=== PATIENT | male | born 1945 | race Caucasian/White ===

== ENCOUNTER → 2016-08-23 | Outpatient (CLI) | payer MEDICARE, BC | LOC: LAB 13:34 | DX: I10 Essential (primary) hypertension (principal); R73.02 Impaired glucose tolerance (oral) ==

== ENCOUNTER → 2016-09-09 | Outpatient (CLI) | payer MEDICARE, BC | LOC: LAB 13:00 | DX: I10 Essential (primary) hypertension (principal) ==

== ENCOUNTER → 2019-07-24 | Outpatient (CLI) | payer MEDICARE, BC | LOC: RAD 08:41 | DX: M48.061 Spinal stenosis, lumbar region without neurogenic claudication (principal); M47.816 Spondylosis without myelopathy or radiculopathy, lumbar region; M43.16 Spondylolisthesis, lumbar region; M99.53 Intervertebral disc stenosis of neural canal of lumbar region ==

== ENCOUNTER → 2020-05-06 | Outpatient (CLI) | payer MEDICARE, BC ==
[2020-05-06 09:54] LABS: HEMATOCRIT 42.1 % (42.0-52.0); HEMOGLOBIN 13.9 g/dL (13.5-18.0); MEAN CELL VOLUME 95 fl (78-100); MEAN CORPUSCULAR HEMOGLOBIN 31 pg (27-31); MEAN CORPUSCULAR HGB CONC 33 g/dL (33-37); MEAN PLATELET VOLUME 8.2 fl (7.4-10.4); PLATELET COUNT 210 K/mm3 (130-400); RED BLOOD COUNT 4.43 M/mm3 (4.20-5.60); RED CELL DISTRIBUTION WIDTH 13.4 % (11.5-14.5)
[2020-05-06 10:09] LABS: LYMPHOCYTE 78 % (20-51); MONOCYTE 4 % (3-10); NEUTROPHILS 18 % (42-75)
== END ==
LOC: LAB 09:42
PROVIDERS: Family Medicine
DX: C91.10 Chronic lymphocytic leukemia of B-cell type not having achieved remission (principal); L30.9 Dermatitis, unspecified

== ENCOUNTER → 2020-07-08 | Outpatient (CLI) | payer MEDICARE, BC ==
[2020-07-08 15:04] LABS: HEMOGLOBIN 13.6 g/dL (13.5-18.0); MEAN CELL VOLUME 96 fl (78-100); MEAN CORPUSCULAR HEMOGLOBIN 31 pg (27-31); MEAN CORPUSCULAR HGB CONC 32 g/dL (33-37); MEAN PLATELET VOLUME 8.3 fl (7.4-10.4); PLATELET COUNT 234 K/mm3 (130-400); RED BLOOD COUNT 4.36 M/mm3 (4.20-5.60); RED CELL DISTRIBUTION WIDTH 13.8 % (11.5-14.5)
[2020-07-08 15:07] LABS: WHITE BLOOD COUNT 21.3 K/mm3 (4.8-10.8)
[2020-07-08 15:18] LABS: LYMPHOCYTE 63 % (20-51); NEUTROPHILS 27 % (42-75)
[2020-07-08 15:19] LABS: MONOCYTE 5 % (3-10)
[2020-07-10 06:38] LABS: ASPERGILLUS FUMIGATUS AL COUNT <0.10 kU/L (()); BERMUDA GRASS ALLERGEN COUNT <0.10 kU/L (()); BOX ELDER-MAPLE ALLERGEN COUNT <0.10 kU/L (()); CAT DANDER ALLERGEN COUNT <0.10 kU/L (()); CLADOSPORIUM ALLERGEN COUNT <0.10 kU/L (()); COCKROACH ALLERGEN COUNT <0.10 kU/L (()); COTTONWOOD TREE ALLERGEN COUNT <0.10 kU/L (()); DUST MITES (D.F.) ALLERG COUNT <0.10 kU/L (()); DUST MITES (D.P.) ALLERG COUNT <0.10 kU/L (()); EGG WHITE ALLERGEN COUNT <0.10 kU/L (()); ELM TREE ALLERGEN COUNT <0.10 kU/L (()); FIREBUSH ALLERGEN COUNT <0.10 kU/L (()); MILK ALLERGEN COUNT <0.10 kU/L (()); OAT ALLERGEN COUNT <0.10 kU/L (()); ROUGH MARSH ELDER ALLERG COUNT <0.10 kU/L (()); RUSSIAN THISTLE ALLERGEN COUNT <0.10 kU/L (()); SHORT RAGWEED ALLERGEN COUNT <0.10 kU/L (()); SOYBEAN ALLERGEN COUNT <0.10 kU/L (()); WHEAT ALLERGEN COUNT <0.10 kU/L (())
[2020-07-10 06:40] LABS: ALTERNARIA TENUIS CNT <0.10 kU/L (()); DOG DANDER ALLERGEN COUNT <0.10 kU/L (()); OAK ALLERGEN COUNT <0.10 kU/L (())
== END ==
LOC: LAB 14:50
PROVIDERS: Family Medicine
DX: C91.90 Lymphoid leukemia, unspecified not having achieved remission (principal); L30.0 Nummular dermatitis

== ENCOUNTER → 2020-11-20 | Outpatient (CLI) | payer MEDICARE, BC ==
[2020-11-20 08:08] LABS: HEMATOCRIT 45.6 % (42.0-52.0); HEMOGLOBIN 14.6 g/dL (13.5-18.0); MEAN CELL VOLUME 95 fl (78-100); MEAN CORPUSCULAR HEMOGLOBIN 31 pg (27-31); MEAN CORPUSCULAR HGB CONC 32 g/dL (33-37); MEAN PLATELET VOLUME 8.2 fl (7.4-10.4); PLATELET COUNT 236 K/mm3 (130-400); RED BLOOD COUNT 4.79 M/mm3 (4.20-5.60); RED CELL DISTRIBUTION WIDTH 15.5 % (11.5-14.5); WHITE BLOOD COUNT 17.2 K/mm3 (4.8-10.8)
[2020-11-20 08:09] LABS: POTASSIUM 3.9 mmol/L (3.5-5.1)
[2020-11-20 08:12] LABS: TOTAL PROTEIN 6.7 g/dL (6.2-8.1)
[2020-11-20 08:13] LABS: TOTAL BILIRUBIN 0.9 mg/dL (0.2-1.2)
[2020-11-20 08:17] LABS: DIRECT BILIRUBIN 0.3 mg/dL (0.0-0.5)
[2020-11-20 08:24] LABS: LYMPHOCYTE 55 % (20-51); MONOCYTE 3 % (3-10); NEUTROPHILS 41 % (42-75)
== END ==
LOC: LAB 11-19 07:04
DX: L40.9 Psoriasis, unspecified (principal); L53.9 Erythematous condition, unspecified; Z51.81 Encounter for therapeutic drug level monitoring

== ENCOUNTER → 2020-12-24 | Outpatient (CLI) | payer MEDICARE, BC ==
[2020-12-24 07:55] LABS: ALBUMIN 3.7 g/dL (3.4-4.8)
[2020-12-24 07:58] LABS: TOTAL PROTEIN 6.2 g/dL (6.2-8.1)
[2020-12-24 07:59] LABS: TOTAL BILIRUBIN 0.8 mg/dL (0.2-1.2)
[2020-12-24 08:03] LABS: DIRECT BILIRUBIN 0.3 mg/dL (0.0-0.5)
== END ==
LOC: LAB 07:27
DX: L40.9 Psoriasis, unspecified (principal); L53.9 Erythematous condition, unspecified; Z51.81 Encounter for therapeutic drug level monitoring

== ENCOUNTER → 2021-01-06 | Outpatient (CLI) | payer MEDICARE, BC ==
[2021-01-06 07:41] LABS: ALBUMIN 3.9 g/dL (3.4-4.8)
[2021-01-06 07:44] LABS: TOTAL PROTEIN 6.8 g/dL (6.2-8.1)
[2021-01-06 07:49] LABS: DIRECT BILIRUBIN 0.3 mg/dL (0.0-0.5)
== END ==
LOC: LAB 07:07
DX: L53.9 Erythematous condition, unspecified (principal); L40.9 Psoriasis, unspecified

== ENCOUNTER → 2021-02-03 | Outpatient (CLI) | payer MEDICARE, BC ==
[2021-02-03 07:26] LABS: HEMATOCRIT 43.9 % (42.0-52.0); HEMOGLOBIN 14.3 g/dL (13.5-18.0); MEAN CELL VOLUME 97 fl (78-100); MEAN CORPUSCULAR HEMOGLOBIN 32 pg (27-31); MEAN CORPUSCULAR HGB CONC 33 g/dL (33-37); MEAN PLATELET VOLUME 8.3 fl (7.4-10.4); PLATELET COUNT 208 K/mm3 (130-400); RED BLOOD COUNT 4.54 M/mm3 (4.20-5.60); RED CELL DISTRIBUTION WIDTH 14.5 % (11.5-14.5); WHITE BLOOD COUNT 15.3 K/mm3 (4.8-10.8)
[2021-02-03 07:59] LABS: ALBUMIN 4.1 g/dL (3.4-4.8); POTASSIUM 4.7 mmol/L (3.5-5.1)
[2021-02-03 08:00] LABS: CALCIUM 9.7 mg/dL (8.3-10.5)
[2021-02-03 08:02] LABS: TOTAL PROTEIN 7.2 g/dL (6.2-8.1)
[2021-02-03 08:03] LABS: TOTAL BILIRUBIN 0.9 mg/dL (0.2-1.2)
[2021-02-03 08:07] LABS: DIRECT BILIRUBIN 0.3 mg/dL (0.0-0.5)
[2021-02-03 09:26] LABS: LYMPHOCYTE 46 % (20-51); MONOCYTE 3 % (3-10); NEUTROPHILS 50 % (42-75)
== END ==
LOC: LAB 07:06
DX: Z51.81 Encounter for therapeutic drug level monitoring (principal); L53.9 Erythematous condition, unspecified

== ENCOUNTER → 2021-04-27 | Outpatient (CLI) | payer MEDICARE, BC ==
[2021-04-27 07:42] LABS: BASO # 0.03 K/mm3 (0.02-0.10); EOS % 0.7 % (0.0-4.0); HEMATOCRIT 48.9 % (42.0-52.0); HEMOGLOBIN 15.9 g/dL (13.5-18.0); LYMPH# 5.92 K/mm3 (1.50-4.00); MEAN CELL VOLUME 96 fl (78-100); MEAN CORPUSCULAR HEMOGLOBIN 31 pg (27-31); MEAN CORPUSCULAR HGB CONC 33 g/dL (33-37); MEAN PLATELET VOLUME 8.1 fl (7.4-10.4); MONO # 0.93 K/mm3 (0.20-0.80); NEU # 7.52 K/mm3 (1.40-6.50); PLATELET COUNT 230 K/mm3 (130-400); RED BLOOD COUNT 5.12 M/mm3 (4.20-5.60); WHITE BLOOD COUNT 14.5 K/mm3 (4.8-10.8)
[2021-04-27 07:53] LABS: ALBUMIN 4.3 g/dL (3.4-4.8)
[2021-04-27 07:54] LABS: POTASSIUM 5.4 mmol/L (3.5-5.1)
[2021-04-27 07:55] LABS: CALCIUM 10.3 mg/dL (8.3-10.5)
[2021-04-27 07:56] LABS: TOTAL PROTEIN 7.6 g/dL (6.2-8.1)
[2021-04-27 08:01] LABS: DIRECT BILIRUBIN 0.3 mg/dL (0.0-0.5)
== END ==
LOC: LAB 07:20
PROVIDERS: Dermatology Procedural Dermatology
DX: Z51.81 Encounter for therapeutic drug level monitoring (principal); L53.9 Erythematous condition, unspecified

== ENCOUNTER 2021-12-03 09:09 | Emergency (ER) | payer MEDICARE, BC ==
[~2021-12-03] VITALS: Ht 167.6 cm; Wt 70.5 kg
[2021-12-03] MEDS ORDERED: ACITRETIN25 MG PO (09:27)
[2021-12-03] MEDS ORDERED: HYDROXYZINE HCL25 M1 PO (09:31)
[2021-12-03] MEDS ORDERED: CLOBETASOL OINT TOP (09:31)
[2021-12-03] MEDS ORDERED: HCTZ 25MG25 MG PO (09:31)
[2021-12-03] MEDS ORDERED: FLOMAX0.4 MG PO (09:32)
[2021-12-03] MEDS ORDERED: TALTZ AUTO80 MG/1 ML SQ (09:34)
[2021-12-03] MEDS ORDERED: FAMOTIDINE20 MG PO (09:34)
[2021-12-03] MEDS ORDERED: B-121000 MCG PO (09:35)
[2021-12-03 10:04] LABS: BASO # 0.04 K/mm3 (0.02-0.10); EOS % 0.9 % (0.0-4.0); HEMATOCRIT 43.3 % (42.0-52.0); HEMOGLOBIN 14.2 g/dL (13.5-18.0); LYMPH# 2.56 K/mm3 (1.50-4.00); MEAN CELL VOLUME 91 fl (78-100); MEAN CORPUSCULAR HEMOGLOBIN 30 pg (27-31); MEAN CORPUSCULAR HGB CONC 33 g/dL (33-37); MEAN PLATELET VOLUME 8.2 fl (7.4-10.4); MONO # 0.98 K/mm3 (0.20-0.80); NEU # 7.04 K/mm3 (1.40-6.50); PLATELET COUNT 251 K/mm3 (130-400); RED BLOOD COUNT 4.76 M/mm3 (4.20-5.60); RED CELL DISTRIBUTION WIDTH 14.6 % (11.5-14.5); WHITE BLOOD COUNT 10.7 K/mm3 (4.8-10.8)
[2021-12-03 10:11] LABS: POTASSIUM 3.6 mmol/L (3.5-5.1)
[2021-12-03 10:12] LABS: CALCIUM 9.4 mg/dL (8.3-10.5)
[2021-12-03 10:13] LABS: TOTAL PROTEIN 7.4 g/dL (6.2-8.1)
[2021-12-03 10:15] LABS: TOTAL BILIRUBIN 1.1 mg/dL (0.2-1.2)
[2021-12-03 11:18] VITALS: BP 132/78
== END 2021-12-03 11:11 | disposition home or self-care (01) ==
LOC: ED 09:09
PROVIDERS: Nurse Practitioner
DX: M25.461 Effusion, right knee (principal)

== ENCOUNTER → 2021-12-14 | Outpatient (CLI) | payer MEDICARE, BC ==
[~2021-12-14] MED LIST: ACITRETIN25 MG PO; B-121000 MCG PO; CLOBETASOL OINT TOP; FAMOTIDINE20 MG PO; FLOMAX0.4 MG PO; HCTZ 25MG25 MG PO; HYDROXYZINE HCL25 M1 PO; TALTZ AUTO80 MG/1 ML SQ
[2021-12-14 16:29] LABS: BASO # 0.03 K/mm3 (0.02-0.10); EOS # 0.07 K/mm3 (0.04-0.40); EOS % 0.4 % (0.0-4.0); HEMATOCRIT 43.8 % (42.0-52.0); HEMOGLOBIN 14.3 g/dL (13.5-18.0); LYMPH# 2.31 K/mm3 (1.50-4.00); MEAN CELL VOLUME 92 fl (78-100); MEAN CORPUSCULAR HEMOGLOBIN 30 pg (27-31); MEAN CORPUSCULAR HGB CONC 33 g/dL (33-37); MEAN PLATELET VOLUME 8.1 fl (7.4-10.4); MONO # 1.16 K/mm3 (0.20-0.80); NEU # 12.71 K/mm3 (1.40-6.50); PLATELET COUNT 245 K/mm3 (130-400); RED BLOOD COUNT 4.78 M/mm3 (4.20-5.60); RED CELL DISTRIBUTION WIDTH 14.4 % (11.5-14.5); WHITE BLOOD COUNT 16.3 K/mm3 (4.8-10.8)
[2021-12-14 16:37] LABS: ALBUMIN 4.1 g/dL (3.4-4.8); POTASSIUM 3.8 mmol/L (3.5-5.1)
[2021-12-14 16:38] LABS: CALCIUM 9.7 mg/dL (8.3-10.5)
[2021-12-14 16:40] LABS: TOTAL PROTEIN 7.5 g/dL (6.2-8.1)
[2021-12-14 16:42] LABS: TOTAL BILIRUBIN 0.8 mg/dL (0.2-1.2)
== END ==
LOC: LAB 16:13
PROVIDERS: Family Medicine
DX: A41.9 Sepsis, unspecified organism (principal); C91.90 Lymphoid leukemia, unspecified not having achieved remission; G64 Other disorders of peripheral nervous system; M10.9 Gout, unspecified; G47.30 Sleep apnea, unspecified; K21.9 Gastro-esophageal reflux disease without esophagitis; I10 Essential (primary) hypertension

== ENCOUNTER → 2021-12-15 | Outpatient (CLI) | payer MEDICARE, BC | LOC: LAB 07:56 | DX: C91.90 Lymphoid leukemia, unspecified not having achieved remission (principal); I10 Essential (primary) hypertension; K21.9 Gastro-esophageal reflux disease without esophagitis; G47.30 Sleep apnea, unspecified; A41.9 Sepsis, unspecified organism; G64 Other disorders of peripheral nervous system; M10.9 Gout, unspecified ==

== ENCOUNTER → 2022-02-03 | Outpatient (CLI) | payer MEDICARE, BC | LOC: LAB 07:13 | DX: G64 Other disorders of peripheral nervous system (principal) ==

== ENCOUNTER → 2022-05-23 | Outpatient (CLI) | payer MEDICARE, BC | LOC: LAB 07:47 | DX: R89.9 Unspecified abnormal finding in specimens from other organs, systems and tissues (principal) ==

== ENCOUNTER → 2022-06-22 | Outpatient (CLI) | payer MEDICARE, BC | LOC: RAD 10:30 | DX: M70.21 Olecranon bursitis, right elbow (principal); M54.2 Cervicalgia ==

== ENCOUNTER → 2022-08-03 | Outpatient (CLI) | payer MEDICARE, BC | LOC: LAB 10:48 | DX: U07.1 COVID-19 (principal); J02.9 Acute pharyngitis, unspecified; H61.22 Impacted cerumen, left ear ==

== ENCOUNTER → 2023-05-12 | Outpatient (CLI) | payer MEDICARE, BC | LOC: LAB 13:59 | DX: E53.1 Pyridoxine deficiency (principal) ==

== ENCOUNTER → 2023-11-21 | Outpatient (CLI) | payer MEDICARE, BC ==
[2023-11-21 07:33] LABS: BASO # 0.02 K/mm3 (0.02-0.10); EOS # 0.11 K/mm3 (0.04-0.40); EOS % 1.1 % (0.0-4.0); HEMATOCRIT 42.2 % (42.0-52.0); HEMOGLOBIN 14.2 g/dL (13.5-18.0); LYMPH# 4.54 K/mm3 (1.50-4.00); MEAN CELL VOLUME 92 fl (78-100); MEAN CORPUSCULAR HEMOGLOBIN 31 pg (27-31); MEAN CORPUSCULAR HGB CONC 34 g/dL (33-37); MEAN PLATELET VOLUME 8.1 fl (7.4-10.4); MONO # 0.46 K/mm3 (0.20-0.80); NEU # 4.63 K/mm3 (1.40-6.50); PLATELET COUNT 227 K/mm3 (130-400); RED BLOOD COUNT 4.58 M/mm3 (4.20-5.60); RED CELL DISTRIBUTION WIDTH 13.4 % (11.5-14.5); WHITE BLOOD COUNT 9.8 K/mm3 (4.8-10.8)
[2023-11-21 07:45] LABS: ALBUMIN 4.2 g/dL (3.4-4.8)
[2023-11-21 07:46] LABS: CALCIUM 9.7 mg/dL (8.3-10.5)
[2023-11-21 07:47] LABS: TOTAL PROTEIN 7.2 g/dL (6.2-8.1)
[2023-11-21 07:49] LABS: TOTAL BILIRUBIN 0.7 mg/dL (0.2-1.2)
== END ==
LOC: LAB 07:21
DX: L44.0 Pityriasis rubra pilaris (principal); Z51.81 Encounter for therapeutic drug level monitoring; Z79.899 Other long term (current) drug therapy

== ENCOUNTER 2024-03-21 07:52 | Outpatient (RCR) | payer MEDICARE, BC | END 2024-04-15 | disposition home or self-care (01) | LOC: PT | DX: M89.8X9 Other specified disorders of bone, unspecified site (principal); Z87.39 Personal history of other diseases of the musculoskeletal system and connective tissue ==

== ENCOUNTER 2024-04-18 07:55 | Outpatient (RCR) | payer MEDICARE, BC | END 2024-05-15 11:27 | disposition home or self-care (01) | LOC: PT 07:55 | DX: M89.8X9 Other specified disorders of bone, unspecified site (principal); Z87.39 Personal history of other diseases of the musculoskeletal system and connective tissue ==

== ENCOUNTER → 2024-07-26 | Outpatient (CLI) | payer MEDICARE, BC ==
[2024-07-26 14:07] LABS: URINE APPEARANCE CLEAR (CLEAR); URINE COLOR YELLOW (YELLOW)
[2024-07-26 14:08] LABS: PH-URINE 6.5 (5.0 - 8.0); URINE BILIRUBIN NEGATIVE (NEGATIVE); URINE GLUCOSE NEGATIVE (NEGATIVE); URINE KETONE NEGATIVE (NEGATIVE); URINE PROTEIN(semi-quant) NEGATIVE (NEGATIVE)
[2024-07-26 14:09] LABS: URINE BLOOD TRACE (NEGATIVE); URINE LEUKOCYTE ESTERASE 2+ (NEGATIVE); URINE NITRATE NEGATIVE (NEGATIVE); URINE WBC 31-50 /hpf (0-3)
[2024-07-26 14:10] LABS: URINE MUCUS PRESENT (NOT PRESENT)
== END ==
LOC: LAB 13:32
PROVIDERS: Nurse Practitioner
DX: R30.0 Dysuria (principal)